=== PATIENT | female | born 1950 | race Caucasian/White ===

== ENCOUNTER 2018-05-17 09:53 | Inpatient (IN) ==
--- NOTE | 2018-04-26 15:54 | PAT Medication Instructions ---
Medication Instructions Date of Service April 26, 2018 Home Medications levothyroxine 75 mcg oral daily in the morning montelukast 10 mg oral evening olanzapine 5 mg oral evening pantoprazole 40 mg oral daily in the morning sertraline 100 mg oral twice a day atorvastatin 20 mg oral evening diltiazem HCl [Cartia XT] 240 mg oral daily in the morning Antibiotic 1 dose oral use as directed as needed Take as Needed for: INVASIVE PROCEDURES Continue as directed Antibiotic 1 dose oral use as directed as needed Take as Needed for: INVASIVE PROCEDURES Take morning of surgery With a small sip of water, OTHERWISE NOTHING TO EAT OR DRINK AFTER MIDNIGHT: levothyroxine 75 mcg oral daily in the morning pantoprazole 40 mg oral daily in the morning sertraline 100 mg oral twice a day diltiazem HCl [Cartia XT] 240 mg oral daily in the morning Take evening before surgery montelukast 10 mg oral evening olanzapine 5 mg oral evening sertraline 100 mg oral twice a day atorvastatin 20 mg oral evening Other Notes If you have any questions please call us at [phone] or [phone] or [phone] or [phone]
--- NOTE | 2018-04-27 13:03 | Anesthesiology Consultation ---
Date of Service April 27, 2018 Assessment & Plan (1) Encounter for pre-operative examination: Chart Review Chart Review: Acceptable Risk for Surgery and Patient seen in Pre Admission Testing Teaching & Discussion Pre-Anesthesia Teaching/Discussion Notes: Instructed NPO after midnight before surgery,except medications with 15 cc of water. Medication instructions provided according to the PAT guidelines. History Surgery Operation Date: 05/17/18 10:05 Proposed Procedures p L3-L5 Decompression and Fusion - Kendell Kumar DO Height/Weight Height: 5 ft 5 in Weight: 107.3 kg Allergies Allergy/AdvReac Type Severity Reaction Status Date / Time codeine Allergy Unknown CHEST Verified 04/27/18 13:21 PAIN/VOMITING morphine Allergy Unknown CHEST Verified 04/27/18 13:21 PAIN/VOMITING Medications Home Medications Medication Instructions Recorded Confirmed Last Taken Antibiotic 1 dose PO UD PRN 04/20/18 04/20/18 Unknown atorvastatin 20 mg PO PM 04/20/18 04/20/18 04/19/18 diltiazem HCl [Cartia XT] 240 mg PO QAM 04/20/18 04/20/18 04/20/18 levothyroxine 75 mcg PO QAM 04/20/18 04/20/18 04/20/18 montelukast 10 mg PO PM 04/20/18 04/20/18 04/19/18 olanzapine 5 mg PO PM 04/20/18 04/20/18 04/19/18 pantoprazole 40 mg PO QAM 04/20/18 04/20/18 04/20/18 sertraline 100 mg PO BID 04/20/18 04/20/18 04/20/18 albuterol sulfate 1 puff INHALATION PRN 04/27/18 Unknown Past Medical History Medical History Acid reflux CONTROLLED Asthma STABLE Depression Hyperlipidemia Hypertension Migraine Obesity Osteoarthritis PVCs (premature ventricular contractions) NO RECENT PALPITATIONS Spinal stenosis Past Family History Family History Other Family history of brain cancer Family history of breast cancer Past Surgical History Surgical History History of ankle surgery LEFT History of cardiac cath 2011= NO STENTS History of colonoscopy History of foot surgery RIGHT History of hemorrhoidectomy History of laparoscopic cholecystectomy History of shoulder surgery LEFT RCR X 2 History of total right knee replacement History of urologic surgery BLADDER TACK Past Anesthesia History No Hx of Anesthesia Complications (EXCEPT PONV) and No Family Hx of Anesthesia Complications History of PONV Yes Motion Sickness Screening History of Motion Sickness: No Social History Smoking Status: Never smoker Do You Dip or Chew Tobacco: No Hx Alcohol Use: No Hx Substance Use: No substance use type: does not use Exercise / Class Metabolic Activity III < 4 Walking/Shop/Light housework Review of Systems Patient reports LBP with LLE radiculopathy/neuropathy. Patient denies chest pain, shortness of breath, cough, wheezing, palpitations. Physical Exam Vital Signs VITALS BP 129/79 P 67 TEMP 98.6 SP02 95%RA RESP 20 PHYSICAL Full neck and c-spine range of motion. Full TMJ range of motion. TMD 2.5 finger breaths Mallampati Score 3 Dentition: full upper dentures Lungs: clear throughout to auscultation Cardiac: regular rate and rhythm, no murmurs noted Spine: normal Carotid arteries: negative bruit Extremities: no edema Testing Electrocardiogram Date: 04/27/18 Findings: + NSR @ (63) Chest X-Ray Date: 04/27/18 Findings: + NAD There is minor retroxiphoid atelectasis/scarring is visualized in the lateral projection Laboratory Results 04/27/18 13:31 04/27/18 13:31 Blood Type O Positive 04/27/18 13:31 Antibody Screen NEGATIVE 04/27/18 13:31 PT 10.1 Seconds (9.0-12.0) 04/27/18 13:31 INR 1.0 (0.9-1.1) 04/27/18 13:31 APTT 23.9 Seconds (21.0-31.0) 04/27/18 13:31 Urine Color Dark Yellow 04/27/18 13:31 Urine Appearance Cloudy (Clear) H 04/27/18 13:31 Urine pH 6.5 (4.5-7.5) 04/27/18 13:31 Ur Specific [place] 1.031 (1.000-1.030) H 04/27/18 13:31 Urine Protein Negative (Negative) 04/27/18 13:31 Urine Glucose (UA) Negative (Negative) 04/27/18 13:31 Urine Ketones Trace (Negative) H 04/27/18 13:31 Urine Nitrite Negative (Negative) 04/27/18 13:31 Ur Leukocyte Esterase Negative (Negative) 04/27/18 13:31 Urine WBC (Auto) 1-5 /hpf (0-5) 04/27/18 13:31 Urine RBC (Auto) 5-10 /hpf (0-4) H 04/27/18 13:31 U Hyaline Cast (Auto) 1-5 /lpf (0-5) 04/27/18 13:31 U Epithel Cells (Auto) >30 /lpf (0-5) H 04/27/18 13:31 Urine Bacteria (Auto) 1+ (Negative) H 04/27/18 13:31 04/27/18 13:31 Urine Culture - Preliminary Urine,Clean Catch Pin-point growth present, reincubating. Surgeon made aware of abnormal UA*
--- NOTE | 2018-04-27 13:47 | XRay Report ---
XR chest Pre-admission PA/Lat CLINICAL HISTORY: Preoperative chest COMPARISON STUDY: No previous studies for comparison. FINDINGS: The cardiac and mediastinal contours are normal. There is no evidence of focal pulmonary co nsolidation. There is no evidence of failure. No pleural effusions are visualized.[ There is minor re troxiphoid atelectasis/scarring is visualized in the lateral projection IMPRESSION: No active disease in the chest. Electronically signed by: Nicolas Guerrero M.D. 04/27/2018 1:45 PM
[2018-04-27 14:17] LABS: Appearance Urine Cloudy (Clear); Bacteria Urine Automated 1+ (Negative); Bilirubin Urine Negative (Negative); Blood Urine Negative (Negative); Color Urine Dark Yellow; Epithelial Cell Urine Auto >30 /lpf (0-5); Glucose Urine UA Negative (Negative); Ketones Urine Trace (Negative); Leukocyte Esterase Urine Negative (Negative); Nitrite Urine Negative (Negative); Protein Urine Negative (Negative); Specific Gravity Urine 1.031 (1.000-1.030); Urobilinogen Urine Negative (Negative); pH Urine 6.5 (4.5-7.5)
[2018-04-27 14:18] LABS: Basophils # (auto) 0.02 K/uL (0-0.2); Basophils % (auto) 0.3 %; Eosinophils # (auto) 0.07 K/uL (0-0.5); Eosinophils % (auto) 1.1 %; Hematocrit (blood only) 41.7 % (37-47); Hemoglobin 13.7 g/dL (12.0-16.0); Immature Granulocytes # (auto) 0.11 K/uL (0.00-0.02); Immature Granulocytes % (auto) 1.7 %; Lymphocytes # (auto) 1.83 K/uL (1.2-3.4); Lymphocytes % (auto) 28.2 %; Mean Corpuscular Hgb Conc 32.9 g/dL (32-36); Mean Corpuscular Volume 87.8 fL (80-100); Mean Platelet Volume 11.6 fL (7.4-10.4); Monocytes # (auto) 0.49 K/uL (0.11-0.59); Monocytes % (auto) 7.5 %; Neutrophils # (auto) 3.98 K/uL (1.4-6.5); Neutrophils % (auto) 61.2 %; Platelet Count 158 K/uL (130-400); RDW Coefficient of Variation 14.1 % (11.5-14.5); RDW Standard Deviation 45.8 fL (36.4-46.3); Red Blood Count 4.75 M/uL (4.2-5.4)
[2018-04-27 14:26] LABS: Partial Thromboplastin Ratio 0.9; Partial Thromboplastin Time 23.9 Seconds (21.0-31.0); Prothrombin Time 10.1 Seconds (9.0-12.0)
[2018-04-27 14:27] LABS: Calcium 8.6 mg/dl (8.5-10.1); Creatinine Clr Calc Pharmacy 76.6 ml/min; Est GFR (African American) 79.4; Est GFR (Non-African American) 68.5; Potassium 3.9 mmol/L (3.5-5.1)
[~2018-05-17 09:53] MED LIST: ACETAMINOPHEN 500 MG TAB PO SCH; CEFAZOLIN 2000MG 2,000 MG/15 ML SYR IV SCH; CeleBREX 200 MG CAP PO SCH; GABAPENTIN 300 MG PO SCH; LR 15ML/HR IV SCH
[2018-05-17] MEDS ORDERED: HYDROmorphone INJ 2 MG/ML SYR/VIAL ONE ×2 (10:42→13:59)
[2018-05-17] MEDS ORDERED: fentaNYL citrate 100 MCG/2 ML VIAL ONE ×4 (10:46→13:59)
[2018-05-17] MEDS ORDERED: MIDAZOLAM HCL 1 MG/ML 2ML VIAL ONE (10:46)
[2018-05-17] MEDS ORDERED: LIDOCAINE HCL 2% 2 ML VIAL/AMP(20MG/ML) INFIL ONE (10:47)
[2018-05-17] MEDS ORDERED: NEOSTIGMINE METHYLSULFATE 1 MG/ML 10ML VIAL ONE (10:47)
[2018-05-17] MEDS ORDERED: DEXAMETHASONE SOD INJ 4 MG/ML VIAL ONE (10:47)
[2018-05-17] MEDS ORDERED: ROCURONIUM BROMIDE 10 MG/ML 5 ML VIAL ONE (10:47)
[2018-05-17] MEDS ORDERED: PROPOFOL IV EMULSION 10 MG/ML 20 ML VIAL IV ONE (10:47)
[2018-05-17] MEDS ORDERED: ONDANSETRON INJ 2 MG/ML 2 ML VIAL ONE ×2 (10:47→12:27)
[2018-05-17] MEDS ORDERED: GLYCOPYRROLATE 0.2 MG/ML VIAL ONE (10:47)
--- NOTE | 2018-05-17 11:12 | History & Physical Bridge Note ---
Date of Service May 17, 2018 History & Physical Bridge Note I have examined the patient, reviewed the History & Physical and in the interval since the performance of the History & Physical I have noted the following changes of clinical significance: no changes noted
--- NOTE | 2018-05-17 11:15 | History & Physical Report ---
Date of Service May 17, 2018 Assessment & Plan (1) Neurogenic claudication due to lumbar spinal stenosis: L3-L5 decompression and fusion Present on Admission?: Yes History of Present Illness Chief Complaint: Back and leg pain Primary Care Provider: Laura Castillo This is a 67-year-old female that presents with chronic persistent back pain. She after failing extensive course of nonoperative care she is here for surgical intervention. Allergies Allergy/AdvReac Type Severity Reaction Status Date / Time codeine Allergy Unknown CHEST Verified 05/17/18 10:13 PAIN/VOMITING morphine Allergy Unknown CHEST Verified 05/17/18 10:13 PAIN/VOMITING Home Medications Home Medications Medication Instructions Recorded Confirmed Type Antibiotic 1 dose PO UD PRN 04/20/18 04/20/18 History atorvastatin 20 mg PO PM 04/20/18 04/20/18 History diltiazem HCl [Cartia XT] 240 mg PO QAM 04/20/18 04/20/18 History levothyroxine 75 mcg PO QAM 04/20/18 04/20/18 History montelukast 10 mg PO PM 04/20/18 04/20/18 History olanzapine 5 mg PO PM 04/20/18 04/20/18 History pantoprazole 40 mg PO QAM 04/20/18 04/20/18 History sertraline 100 mg PO BID 04/20/18 04/20/18 History albuterol sulfate 1 puff INHALATION PRN 04/27/18 History Past Med/Surg History Family History Other Family history of brain cancer Family history of breast cancer Social History Preferred Language: Uzbek Communication Ability: Effective Boiler Riveter Required: No Beliefs That Will Affect Care: None Current Living Situation: Spouse Other Information That Helps Us Care for You: No Feels Safe at Home: Yes Smoking Status: Never smoker Hx Alcohol Use: No Hx Substance Use: No Physical Exam Vital Signs (Past 24 Hours): Last Vital Signs Temp 36.9 C 05/17/18 10:36 Pulse 66 05/17/18 10:36 Resp 20 05/17/18 10:36 BP 158/89 H 05/17/18 10:36 Pulse Ox 95 05/17/18 10:36 Results & Data Medications Administered Acetaminophen (Tylenol) 1,000 mg PO PREOP PEDRO Stop: 05/17/18 18:00 Last Admin: 05/17/18 10:38 Dose: 1,000 mg Documented by: [id number] Celecoxib (Celebrex) 200 mg PO PREOP PEDRO Stop: 05/17/18 18:00 Last Admin: 05/17/18 10:38 Dose: 200 mg Documented by: [id number] Gabapentin (Neurontin) 300 mg PO PREOP PEDRO Stop: 05/17/18 18:00 Last Admin: 05/17/18 10:39 Dose: 300 mg Documented by: [id number] Lactated Ringer's (Lr) 1,000 mls @ 15 mls/hr IV .Q24H PEDRO Stop: 05/18/18 05:59 Last Admin: 05/17/18 10:38 Dose: 15 mls/hr Documented by: [id number]
[2018-05-17] MEDS ORDERED: BUPIVACAINE/EPINEPHRINE 0.5% MPF 1:200,000 30 ML VIAL ONE (11:29)
[2018-05-17] MEDS ORDERED: BACITRACIN INJ 50,000 UNIT VIAL ONE (11:30)
[2018-05-17] MEDS ORDERED: ePHEDrine sulfate 50 MG/ML AMP IV PRN (11:50)
[2018-05-17] MEDS ORDERED: HYDROmorphone INJ 2 MG/ML SYR/VIAL IV PRN (11:50)
[2018-05-17] MEDS ORDERED: ONDANSETRON INJ 2 MG/ML 2 ML VIAL IV PRN ×2 (11:50→15:40)
[2018-05-17] MEDS ORDERED: DEXAMETHASONE SOD INJ 4 MG/ML VIAL IV PRN (11:50)
[2018-05-17] MEDS ORDERED: ATROPINE SULFATE 0.1 MG/ML 10ML SYR IV PRN (11:50)
[2018-05-17] MEDS ORDERED: PHENYLEPHRINE 100MCG/ML 5ML SYR ONE ×2 (12:27→14:03)
[2018-05-17] MEDS ORDERED: raNITIdine HCl 25 MG/ML VIAL ONE (12:27)
[2018-05-17] MEDS ORDERED: ePHEDrine sulfate 50 MG/ML SYR ONE ×2 (12:27→14:03)
[2018-05-17] MEDS ORDERED: METOCLOPRAMIDE HCL INJ 5 MG/ML 2 ML VIAL ONE (12:27)
[2018-05-17] MEDS ORDERED: FLOSEAL HEMOSTATIC MATRIX 10ML TOP ONE (13:52)
[2018-05-17] MEDS ORDERED: KETOROLAC 30 MG/ML VIAL ONE (13:59)
--- NOTE | 2018-05-17 14:02 | Operative Report ---
Post Operative Report Pre & Post Diagnosis Operation Date: 05/17/18 11:25 Pre-Op Diagnosis: Neurogenic claudication due to lumbar spinal stenosis Post-Op Diagnosis: Neurogenic claudication due to lumbar spinal stenosis Procedure Operation Date: 05/17/18 11:25 Actual Procedures #1 lumbar decompression medial facetectomies foraminotomies L2-3 L3-4 L4-5 per #2 posterior spinal fusion L3-4 L4-5 per #3 placement posterior segmental instrumentation L3-4 L4-5. #4 interbody fusion L3-4 L4-5. #5 placement of titanium 11 x 22 mm cage L3-4 and 13 x 2 at L4-5 per #6 placement of local autograft in the posterior lateral gutters. #7 placement Feese collagen sponge bone mass graft in the posterior lateral gutters and ostial amp and interbody space. Surgeon Kendell Kumar, Course Instructor Teri Alas Estimated Blood Loss 475 Findings Consistent with Post-Op Diagnosis Specimens None Description of Procedure Patient was met with preoperatively case discussed all questions addressed. After informed consent obtained patient was taken to the operative suite underwent intubation and placed in the prone position on the Brandon table on top of the Gene frame. All bony prominences well-padded eyes inspected to ensure no external pressure placed upon the. This point the lumbar spine was prepped and draped in a normal sterile fashion. Sharp dissection with the assistance of Bovie cautery was performed down to and exposing the lamina and transverse processes of L3 L4-5 bilaterally. From a caudal to cephalad fashion complete laminectomy of L4 3 and partial laminectomy of L2 was performed including bilateral medial facetectomies and foraminotomies addressing severe stenosis. Also identified and removed a massive facet cyst at L3-4 on the left. Pedicle screws and placed in L3-L4-L5 bilaterally with assistance of fluoroscopy and the purposes justen placed by way of a transforaminal approach and left complete discectomy of L4-5 was performed in plate coated to subcortical mean bone and a 13 x 22 mm titanium cage filled with ostium bone graft tapped in position. Then proceeded L3-4 and again through a transforaminal approach and left complete discectomy performed in place coated to subcortical mean bone and an 11 x 22 mm titanium cage filled with ostium bone graft tapped in position. Rods were then locked in final position bilaterally. The transverse processes of L3-L4-L5 bur to subcortical bleeding bone. Infuse collagen sponge mass graft local autograft placed in the posterior gutters. 15 round MADELYN drain inserted. Incision was then closed with 1 Vicryl in the fascia 2-0 Vicryl substantially and 4-0 Monocryl for final skin closure. Steri-Strip sterile dressings placed. Patient will continue PACU stable history please note Teri Alas present throughout the entire procedure involved in patient positioning complex portions of the surgery and final skin closure. I attest to the content of the Intraoperative Record and any orders documented therein. Any exceptions are noted below.
[2018-05-17] MEDS ORDERED: LARYING-O-JET KIT (LTA) ONE (14:06)
--- NOTE | 2018-05-17 14:23 | Fluoroscopy Report ---
FL lumbar spine 2-3V CLINICAL HISTORY: 67 years-old Female presenting with L3-L5 DECOMPRESSION AND FUSION. TECHNIQUE: 2 fluoroscopic image(s) recorded as part of an intraoperative procedure. COMPARISON: None. FINDINGS/IMPRESSION: Posterior bilateral transpedicular screw not fixation of L3-L5 with interbody spacers and laminectomy defects. Please see surgical report for further details. Fluoroscopy dosage (mGy): 14.83. Fluoroscopy time: 14.7 seconds. Number or time of high level fluoroscopy (HLF), digital spot, or digital subtraction images: 0. Electronically signed by: Ze Mariee M.D. 05/17/2018 2:22 PM
[2018-05-17] MEDS: fentaNYL citrate 100 MCG/2 ML VIAL IV PRN ×2 (14:50→14:56)
[2018-05-17] MEDS ORDERED: PROMETHAZINE HCL 12.5 MG in SODIUM CHLORIDE 0.9% 50 ML IV STA (15:01)
--- NOTE | 2018-05-17 15:11 | Anesthesiology Progress Note ---
Date of Service May 17, 2018 Anesthesia Post Procedure Vital Signs Vital Signs: Temp Pulse Pulse Resp BP Pulse Ox 05/17/18 15:00 69 17 134/57 L 97 05/17/18 14:50 74 13 140/70 98 05/17/18 14:40 83 16 143/73 H 99 05/17/18 14:30 91 H 18 144/67 H 98 05/17/18 14:22 36.7 C 83 18 135/69 94 05/17/18 10:36 36.9 C 66 20 158/89 H 95 Pain Intensity Lower Back: Pain Intensity: 6 Back: Pain Intensity: 4 Notes Mental Status: alert / awake / arousable and participated in evaluation Patient Amnestic to Procedure: Yes Nausea / Vomiting: adequately controlled Pain: adequately controlled Airway Patency, RR, SpO2: stable & adequate BP & HR: stable & adequate Hydration State: stable & adequate Anesthetic Complications: no major complications apparent
[2018-05-17] MEDS ORDERED: PROMETHAZINE HCL 12.5 MG in SODIUM CHLORIDE 0.9% 50 ML IV SCH (15:15)
[2018-05-17] MEDS ORDERED: SOD PHOSPHATE/SOD BIPHOSPHATE ENEMA 132 ML BTL PR PRN (15:40)
[2018-05-17] MEDS ORDERED: LORazepam 0.5 MG/1 ML VIAL IV PRN (15:40)
[2018-05-17] MEDS ORDERED: BISACODYL 10 MG SUPP PR PRN (15:40)
[2018-05-17] MEDS ORDERED: ONDANSETRON 4 MG TAB PO PRN (15:40)
[2018-05-17] MEDS ORDERED: MAGNESIUM HYDROXIDE SUSP 30 ML UDC PO PRN (15:40)
[2018-05-17] MEDS ORDERED: DO NOT ADMINISTER FLU VACCINE PRN (15:40)
[2018-05-17] MEDS ORDERED: ACETAMINOPHEN 1,000 MG/100 ML VIAL IV PRN (15:40)
[2018-05-17] MEDS ORDERED: LORazepam 0.5 MG TAB PO PRN (15:40)
[2018-05-17] MEDS ORDERED: FAMOTIDINE 20 MG TAB PO PRN (15:40)
[2018-05-17] MEDS ORDERED: HYDROmorphone INJ 0.5 MG/0.5 ML SYR IV PRN (15:40)
[2018-05-17] MEDS ORDERED: PROMETHAZINE HCL 12.5 MG in SODIUM CHLORIDE 0.9% 50 ML IV PRN (15:40)
[2018-05-17] MEDS ORDERED: METOCLOPRAMIDE HCL INJ 5 MG/ML 2 ML VIAL IV PRN (15:40)
[2018-05-17] MEDS ORDERED: ACETAMINOPHEN 500 MG TAB PO PRN (15:40)
[2018-05-17] MEDS ORDERED: ALUMINUM/MAGNESIUM SUSP 30 ML UDC PO PRN (15:40)
[2018-05-17] MEDS ORDERED: DO NOT ADMINISTER PNEUMOCOCCAL VACCINE PRN (15:40)
[2018-05-17] MEDS: KETOROLAC TROMETHAMINE 15 MG/ML VIAL IV SCH ×2 (16:14→21:53)
[2018-05-17] MEDS: LACTATED RINGER'S 1,000 ML IV SCH ×2 (16:14→21:56)
--- NOTE | 2018-05-17 16:33 | Consultation ---
Date of Consultation May 17, 2018 Assessment & Plan (1) Neurogenic claudication due to lumbar spinal stenosis: POD #0 S/P Lumbar Decompression/Fusion L3-L5 by Dr. Kumar EBL 475ml tolerated procedure well -pain/wound management per primary -activity as directed by primary -follow cbc to monitor for abl anemia -SCDs for dvt ppx (2) Hypertension: -blood pressure stable, continue diltiazem (3) Hyperlipidemia: -continue atorvastatin (4) Asthma: -no acute exacerbation -prn ventolin (5) Depression: -mood stable, zyprexa at HS (6) Obesity: -encourage lifestyle modifications -BMI 39 (7) Acid reflux: -continue PPI (8) DVT prophylaxis: -SCDS, per primary Disposition: per primary Follow up: PCP Laura Castillo upon discharge Patient was seen and examined in collaboration with Dr. Agosto, please see addendum Starting 05/18/18 patient will be under the care of Dr. Agosto Supervising Physician Co-Signing Physician Notes Attending addendum The patient was seen and examined the medical floor Status post lumbar decompression fusion Denies any symptoms of chest pain, shortness of breath, palpitation, no abdominal pain, nausea no vomiting, denies any numbness or tingling in the extremities Complains to have minimal pain involving the back On examination No apparent distress at rest Hemodynamically stable Chest-clear to auscultate bilaterally Heart-S1-S2, regular Abdomen-benign, nontender, bowel sounds present Extremities-no edema ANGLE FURNACEMAN-alert, awake and oriented x3 Admission labs, EKG and imaging studies reviewed Medically stable Agree with assessment and plan as outlined above by Wendi Agosto History of Present Illness Reason for Consultation: Postop medical management Requesting Physician: Dr. Kumar Attending Physician: Kendell Kumar, DO History of Present Illness PCP: Laura Castillo This is a 67-year-old white female who has a significant past medical history of HTN, HLD, hypothyroidism, history of PVC, allergic asthma, GERD, hiatal hernia, MDD who presents to [facility] for elective lumbar surgery by Dr. Kumar. is at bedside. Patient states prior to procedure she experienced low back pain with left lower extremity numbness. Patient underwent elective lumbar decompression fusion L3-L5 by Dr. Kumar. She tolerated the procedure well but did have significant postop nausea; however, no vomiting. Currently she complains of incisional discomfort but otherwise feels, "okay." Denies any fever, chills, sweats, lightheadedness, dizziness, chest pain, shortness of breath, palpitations, hemoptysis, nausea, vomiting, diarrhea, abdominal pain. She does have a Sanchez catheter and MADELYN drain in place. She o ffers no acute complaints or concerns. Allergies Allergy/AdvReac Type Severity Reaction Status Date / Time codeine Allergy Unknown CHEST Verified 05/17/18 10:13 PAIN/VOMITING morphine Allergy Unknown CHEST Verified 05/17/18 10:13 PAIN/VOMITING Home Medications Home Medications Medication Instructions Recorded Confirmed Type atorvastatin 20 mg PO PM 04/20/18 04/20/18 History diltiazem HCl [Cartia XT] 240 mg PO QAM 04/20/18 04/20/18 History levothyroxine 75 mcg PO QAM 04/20/18 04/20/18 History montelukast 10 mg PO PM 04/20/18 04/20/18 History olanzapine 5 mg PO PM 04/20/18 04/20/18 History pantoprazole 40 mg PO QAM 04/20/18 04/20/18 History sertraline 100 mg PO BID 04/20/18 04/20/18 History albuterol sulfate [Ventolin HFA] 2 puff INHALATION Q4H PRN 05/17/18 05/17/18 History amoxicillin 2 g PO UD 05/17/18 05/17/18 History Patient History Social History Preferred Language: Slovak Communication Ability: Effective Parking Station Attendant Required: No Beliefs That Will Affect Care: None Current Living Situation: Spouse Other Information That Helps Us Care for You: No Feels Safe at Home: Yes Smoking Status: Never smoker Hx Alcohol Use: No Hx Substance Use: No Review of Systems As noted per HPI, 10 systems reviewed and negative unless noted above. Physical Exam Vital Signs (Past 24 Hours): Last Vital Signs Temp 36.7 C 05/17/18 16:05 Pulse 72 05/17/18 16:05 Resp 20 05/17/18 16:05 BP 125/71 05/17/18 16:05 Pulse Ox 97 05/17/18 16:05 Physical Exam: Gen: WD/WN, F, NAD, sitting up in bed, pleasant, conversing easily Head: Normocephalic, Atraumatic Eyes: Sclera normal, no conjunctival injection, PERRLA, EOMI ENT: Gross hearing intact, normal pharynx, mucous membranes dry Neck: supple, no adenopathy, No JVD, no bruit, Resp: Clear to auscultation b/l, no wheeze, rales, rhonchi. Normal insp/exp effort, no accessory muscle use CV: Regular rate, regular rhythm, soft 1/6 AYESHA noted RUSB, no rub, gallop, or ectopy Abd: +obese abdomen, +BS x 4, soft, nontender, nondistended Musculoskeletal: moves extremities active rom x 4, strength intact, good manager general strength Extremities: No edema bilaterally, SCDS in place Skin: warm, moist, no rash, negative turgor, cap refill < 2sec, lumbar dressing CDI, MADELYN drain in place draining serosanginous drainage Neuro: Alert and oriented x 3, speech normal, good mood/affect, cran nerve 2-12 intact grossly : +sanchez with clear yellow urine Results & Data Laboratory Results Preoperative H&H 13.1 and 41.7 Urinalysis positive leukoesterase and bacteria, many epithelial cells grew multi-organism likely skin rosa no acute infection Diagnostic Findings Preoperative chest x-ray no acute cardia pulmonary disease Medications Administered Hydromorphone HCl (Dilaudid) 0.5 - 1 mg IV Q3H PRN PRN Reason: Pain Stop: 05/31/18 15:39 Last Admin: 05/17/18 16:15 Dose: 0.5 mg Documented by: [id number] Lactated Ringer's (Lr) 1,000 mls @ 150 mls/hr IV .Q6H40M PEDRO Stop: 06/16/18 15:39 Last Admin: 05/17/18 16:14 Dose: 150 mls/hr Documented by: [id number] Ketorolac Tromethamine (Toradol) 15 mg IV Q6H PEDRO Stop: 05/18/18 10:01 Last Admin: 05/17/18 16:14 Dose: 15 mg Documented by: [id number] Discontinued Medications Acetaminophen (Tylenol) 1,000 mg PO PREOP PEDRO Stop: 05/17/18 18:00 Last Admin: 05/17/18 10:38 Dose: 1,000 mg Documented by: [id number] Bacitracin (Bacitracin) Confirm Administered Dose 50,000 units .ROUTE .STK-MED ONE Stop: 05/17/18 11:31 Last Admin: 05/17/18 13:36 Dose: 50,000 units Documented by: [id number] Bupivacaine HCl/Epinephrine Bitart (Sensorcaine/Epinephrine 0.5% Mpf 1:200,000) Confirm Administered Dose 30 ml .ROUTE .STK-MED ONE Stop: 05/17/18 11:30 Last Admin: 05/17/18 13:36 Dose: 25 ml Documented by: [id number] Celecoxib (Celebrex) 200 mg PO PREOP PEDRO Stop: 05/17/18 18:00 Last Admin: 05/17/18 10:38 Dose: 200 mg Documented by: [id number] Fentanyl Citrate (Fentanyl Citrate) 50 mcg IV Q5M PRN PRN Reason: PACU Use Only-Pain Stop: 05/17/18 16:50 Last Admin: 05/17/18 14:56 Dose: 50 mcg Documented by: [id number] Admin: 05/17/18 14:50 Dose: 50 mcg Documented by: [id number] Gabapentin (Neurontin) 300 mg PO PREOP PEDRO Stop: 05/17/18 18:00 Last Admin: 05/17/18 10:39 Dose: 300 mg Documented by: [id number] Lactated Ringer's (Lr) 1,000 mls @ 15 mls/hr IV .Q24H PEDRO Stop: 05/18/18 05:59 Last Infusion: 05/17/18 11:47 Dose: 0 mls/hr Documented by: [id number] Admin: 05/17/18 10:38 Dose: 15 mls/hr Documented by: [id number] Cefazolin Sodium (Ancef 2000mg) 2,000 mg in 15 mls @ 3.75 mls/min IV PREOP PEDRO; Protocol Stop: 05/17/18 18:00 Last Admin: 05/17/18 11:47 Dose: 3.75 mls/min Documented by: [id number] Promethazine HCl 12.5 mg/ (Sodium Chloride) 50.5 mls @ 202 mls/hr IV TODAY@1515 PEDRO Stop: 05/17/18 15:29 Last Admin: 05/17/18 15:14 Dose: 202 mls/hr Documented by: [id number] Miscellaneous (Floseal Hemostatic Matrix 10ml) 25 ml TOP ONCE ONE Stop: 05/17/18 13:53 Last Admin: 05/17/18 13:53 Dose: 25 ml Documented by: [id number] Ondansetron HCl (Zofran) 4 mg IV ONCE PRN PRN Reason: PACU Use Only-Nausea/Vomiting Stop: 05/17/18 16:50 Last Admin: 05/17/18 14:45 Dose: 4 mg Documented by: [id number] ECG Rate (beats per minute): 63 Rhythm: normal sinus (1) Depression Active/Remission status: remission status unspecified Depression Type: major depressive disorder Major depression recurrence: unspecified whether recurrent Qualified Code(s): F32.9 - Major depressive disorder, single episode, unspecified (2) Hyperlipidemia Hyperlipidemia type: unspecified Qualified Code(s): E78.5 - Hyperlipidemia, unspecified (3) Acid reflux Esophagitis presence: esophagitis presence not specified Qualified Code(s): K21.9 - Gastro-esophageal reflux disease without esophagitis (4) Hypertension Hypertension type: essential hypertension Qualified Code(s): I10 - Essential (primary) hypertension (5) Obesity Body mass index: BMI 39.0-39.9 Obesity classification: adult class 2 (BMI 35 - 39.9) Obesity type: due to excess calories Serious obesity comorbidity presence: without serious comorbidity Qualified Code(s): E66.09 - Other obesity due to excess calories; Z68.39 - Body mass index (BMI) 39.0-39.9, adult (6) Asthma Asthma complication type: uncomplicated Asthma persistence: intermittent Asthma severity: mild Qualified Code(s): J45.20 - Mild intermittent asthma, uncomplicated
[2018-05-17] MEDS: CEFAZOLIN 2000MG 2,000 MG/15 ML SYR IV SCH (20:44)
[2018-05-17] MEDS: MONTELUKAST SODIUM 10 MG TABLET PO SCH (20:49)
[2018-05-17] MEDS: ATORVASTATIN 20 MG TAB PO SCH (20:49)
[2018-05-17] MEDS: DOCUSATE SODIUM/SENNA 50/8.6MG TAB PO SCH (20:49)
[2018-05-17] MEDS: OLANZapine 5 MG TABLET PO SCH (20:50)
[2018-05-17] MEDS: SERTRALINE HCL 100 MG TABLET PO SCH (20:50)
[2018-05-17] MEDS: OXYCODONE HCL IR 5 MG TAB (IMMEDIATE RELEASE) PO PRN (23:14)
[2018-05-18] MEDS: KETOROLAC TROMETHAMINE 15 MG/ML VIAL IV SCH ×2 (03:55→09:18)
[2018-05-18] MEDS: CEFAZOLIN 2000MG 2,000 MG/15 ML SYR IV SCH (03:55)
[2018-05-18] MEDS: LACTATED RINGER'S 1,000 ML IV SCH (04:05)
[2018-05-18] MEDS: POLYETHYLENE (MIRALAX) 17 GM PACK PO SCH ×4 (05:49→23:47)
[2018-05-18] MEDS: LEVOTHYROXINE SODIUM 75 MCG TABLET PO SCH (05:49)
[2018-05-18 06:09] LABS: Basophils # (auto) 0.01 K/uL (0-0.2); Basophils % (auto) 0.1 %; Hematocrit (blood only) 34.2 % (37-47); Hemoglobin 10.9 g/dL (12.0-16.0); Immature Granulocytes # (auto) 0.07 K/uL (0.00-0.02); Immature Granulocytes % (auto) 0.6 %; Lymphocytes # (auto) 0.71 K/uL (1.2-3.4); Lymphocytes % (auto) 6.3 %; Mean Corpuscular Hgb Conc 31.9 g/dL (32-36); Mean Platelet Volume 11.9 fL (7.4-10.4); Monocytes # (auto) 0.56 K/uL (0.11-0.59); Neutrophils # (auto) 9.86 K/uL (1.4-6.5); Platelet Count 146 K/uL (130-400); Red Blood Count 3.93 M/uL (4.2-5.4); White Blood Count 11.21 K/uL (4.8-10.8)
[2018-05-18 06:34] LABS: BUN Creatinine Ratio 14.2 (10-20); Calcium 8.3 mg/dl (8.5-10.1); Creatinine Clr Calc Pharmacy 70.5 ml/min; Est GFR (African American) 72.3; Est GFR (Non-African American) 62.4; Potassium 4.5 mmol/L (3.5-5.1)
[2018-05-18] MEDS: PANTOprazole 40 MG TAB PO SCH (07:24)
[2018-05-18] MEDS: dilTIAZem HCL 240 MG CAPCR PO SCH (07:25)
[2018-05-18] MEDS: SERTRALINE HCL 100 MG TABLET PO SCH ×2 (07:25→20:38)
--- NOTE | 2018-05-18 08:04 | Anesthesiology Progress Note ---
Date of Service May 18, 2018 Anesthesia Post Procedure Vital Signs Vital Signs: Temp Pulse Pulse Pulse Resp BP Pulse Ox 05/18/18 07:23 36.8 C 78 15 119/71 97 05/18/18 03:44 36.8 C 54 L 15 116/61 94 05/17/18 23:01 36.9 C 64 15 105/62 95 05/17/18 18:56 36.7 C 67 18 108/65 95 05/17/18 17:35 61 17 121/72 97 05/17/18 16:44 36.6 C 71 18 121/74 96 05/17/18 16:05 36.7 C 72 20 125/71 97 05/17/18 15:35 36.7 C 70 18 127/75 97 05/17/18 15:34 36.6 C 65 16 130/63 100 05/17/18 15:20 36.6 C 72 19 124/73 94 05/17/18 15:10 66 12 118/67 98 05/17/18 15:00 69 17 134/57 L 97 05/17/18 14:50 74 13 140/70 98 05/17/18 14:40 83 16 143/73 H 99 05/17/18 14:30 91 H 18 144/67 H 98 05/17/18 14:22 36.7 C 83 18 135/69 94 05/17/18 10:36 36.9 C 66 20 158/89 H 95 Pain Intensity Lower Back: Pain Intensity: 0 Back: Pain Intensity: 0 Notes Mental Status: alert / awake / arousable and participated in evaluation Patient Amnestic to Procedure: Yes Nausea / Vomiting: adequately controlled Pain: adequately controlled Airway Patency, RR, SpO2: stable & adequate BP & HR: stable & adequate Hydration State: stable & adequate Anesthetic Complications: no major complications apparent
[2018-05-18] MEDS ORDERED: LEVOTHYROXINE SODIUM 75 MCG TABLET PO SCH (09:00)
--- NOTE | 2018-05-18 09:57 | Hospitalist Progress Note ---
Date of Service May 18, 2018 Assessment & Plan (1) Neurogenic claudication due to lumbar spinal stenosis: POD #1 S/P Lumbar Decompression/Fusion L3-L5 by Dr. Kumar -Tolerated procedure well -Per ortho for pain control, wound care, anticoagulation and activities -Monitor H&H (EBL 475ml), hgb stable to 10.9 today. Continue to monitor -Continue incentive spirometry, PT/OT when appropriate (2) Hypertension: Normotensive (3) Hyperlipidemia: Continue atorvastatin (4) Asthma: No acute exacerbation -PRN Ventolin (5) Depression: Mood stable, Zyprexa HS (6) Obesity: Encourage lifestyle modifications -BMI 39 (7) Acid reflux: Continue PPI (8) DVT prophylaxis: SCDS, per primary Disposition: per primary Follow up: PCP Laura Castillo upon discharge Patient was seen and examined in collaboration with Dr. Agosto, please see addendum Subjective Patient seen and examined. Feeling well this morning. Denies back or leg pain. No chest pain, SOB, nausea, vomiting or abdominal pain. Still has sanchez catheter in but it will be removed after PT. + flatus but no BM. Physical Exam Vital Signs (Past 24 Hours): Last Vital Signs Temp 36.8 C 05/18/18 07:23 Pulse 78 05/18/18 07:23 Resp 15 05/18/18 07:23 BP 119/71 05/18/18 07:23 Pulse Ox 97 05/18/18 07:23 Physical Exam: General Appearance: WD/WN, no apparent distress, resting comfortably in bedside chair Head: normocephalic, atraumatic Eyes: normal inspection, PERRL, EOMI ENT: hearing grossly normal, pharynx normal (moist mucous membranes) Neck: supple, no JVD, no adenopathy Respiratory/Chest: lungs clear to auscultation. No wheezes, rales or rhonci. No respiratory distress or accessory muscle use Cardiovascular: regular rate, rhythm, no murmur, normal peripheral pulses Abdomen/GI: normal bowel sounds, soft, non-tender to palpation Extremities/Musculoskelatal: Lumbosacral dressing clean, dry, intact. MADELYN drain visualized. Normal capillary refill, no pedal edema Neurologic/Psych: alert, normal mood/affect, oriented x 3 Skin: normal color, warm/dry Results & Data Laboratory Results Short CBC 05/18/18 Range/Units 05:48 WBC 11.21 H (4.8-10.8) K/uL Hgb 10.9 L (12.0-16.0) g/dL Hct 34.2 L (37-47) % Plt Count 146 (130-400) K/uL BMP 05/18/18 05:48 Sodium 143 Potassium 4.5 Chloride 109 H Carbon Dioxide 28 BUN 14 Creatinine 0.95 Glucose 133 H Calcium 8.3 L (1) Hypertension Hypertension type: essential hypertension Qualified Code(s): I10 - Essential (primary) hypertension (2) Hyperlipidemia Hyperlipidemia type: unspecified Qualified Code(s): E78.5 - Hyperlipidemia, unspecified (3) Asthma Asthma severity: mild Asthma persistence: intermittent Asthma complication type: uncomplicated Qualified Code(s): J45.20 - Mild intermittent asthma, uncomplicated (4) Depression Depression Type: major depressive disorder Major depression recurrence: unspecified whether recurrent Active/Remission status: remission status unspecified Qualified Code(s): F32.9 - Major depressive disorder, single episo de, unspecified (5) Obesity Obesity type: due to excess calories Obesity classification: adult class 2 (BMI 35 - 39.9) Serious obesity comorbidity presence: without serious comorbidity Body mass index: BMI 39.0-39.9 Qualified Code(s): E66.09 - Other obesity due to excess calories; Z68.39 - Body mass index (BMI) 39.0-39.9, adult (6) Acid reflux Esophagitis presence: esophagitis presence not specified Qualified Code(s): K21.9 - Gastro-esophageal reflux disease without esophagitis
[2018-05-18] MEDS: OXYCODONE HCL IR 5 MG TAB (IMMEDIATE RELEASE) PO PRN ×2 (11:05→20:38)
--- NOTE | 2018-05-18 12:18 | Orthopedic Progress Note ---
Date of Service May 18, 2018 Assessment & Plan (1) Spinal stenosis: This time we will continue physical therapy monitor her MADELYN output anticipate discharge home in the next few days. Present on Admission?: Yes Subjective Back pain is controlled leg symptoms markedly improved Physical Exam Vital Signs (Past 24 Hours): Last Vital Signs Temp 36.8 C 05/18/18 11:24 Pulse 61 05/18/18 11:24 Resp 19 05/18/18 11:24 BP 123/72 05/18/18 11:24 Pulse Ox 96 05/18/18 11:24 Physical Exam: Patient is in the chair at the bedside. She is good strength testing. Appears comfortable.
[2018-05-18] MEDS: DOCUSATE SODIUM/SENNA 50/8.6MG TAB PO SCH (17:41)
[2018-05-18] MEDS: ATORVASTATIN 20 MG TAB PO SCH (20:38)
[2018-05-18] MEDS: MONTELUKAST SODIUM 10 MG TABLET PO SCH (20:38)
[2018-05-18] MEDS: OLANZapine 5 MG TABLET PO SCH (20:38)
[2018-05-18] MEDS: TRAMADOL HCL 50 MG TABLET PO PRN (22:07)
[2018-05-19 06:14] LABS: Hematocrit (blood only) 32.2 % (37-47); Hemoglobin 10.1 g/dL (12.0-16.0); Mean Corpuscular Hgb Conc 31.4 g/dL (32-36); Mean Corpuscular Volume 89.2 fL (80-100); Mean Platelet Volume 11.7 fL (7.4-10.4); Platelet Count 131 K/uL (130-400); RDW Coefficient of Variation 14.4 % (11.5-14.5); RDW Standard Deviation 46.9 fL (36.4-46.3); Red Blood Count 3.61 M/uL (4.2-5.4); White Blood Count 9.91 K/uL (4.8-10.8)
[2018-05-19] MEDS: POLYETHYLENE (MIRALAX) 17 GM PACK PO SCH ×3 (06:31→17:56)
[2018-05-19] MEDS: LEVOTHYROXINE SODIUM 75 MCG TABLET PO SCH (06:31)
[2018-05-19 06:43] LABS: Calcium 8.4 mg/dl (8.5-10.1); Creatinine Clr Calc Pharmacy 78.8 ml/min; Est GFR (African American) 82.8; Est GFR (Non-African American) 71.4; Potassium 4.7 mmol/L (3.5-5.1)
[2018-05-19] MEDS: OXYCODONE HCL IR 5 MG TAB (IMMEDIATE RELEASE) PO PRN ×3 (07:23→15:54)
[2018-05-19] MEDS: PANTOprazole 40 MG TAB PO SCH (07:24)
[2018-05-19] MEDS: dilTIAZem HCL 240 MG CAPCR PO SCH (07:24)
[2018-05-19] MEDS: SERTRALINE HCL 100 MG TABLET PO SCH ×2 (07:24→20:53)
--- NOTE | 2018-05-19 07:56 | Orthopedic Progress Note ---
Date of Service May 19, 2018 Assessment & Plan (1) Neurogenic claudication due to lumbar spinal stenosis: This time we will continue physical therapy monitor her MADELYN output anticipate discharge home tomorrow. Present on Admission?: Yes Subjective Patient states her back pain is somewhat more limiting today. Denies any leg pain. Is tolerating therapy well. Physical Exam Vital Signs (Past 24 Hours): Last Vital Signs Temp 36.6 C 05/19/18 06:27 Pulse 60 05/19/18 06:27 Resp 16 05/19/18 06:27 BP 125/78 05/19/18 06:27 Pulse Ox 99 05/19/18 06:27 Physical Exam: Patient has good strength testing if she sits at the bedside.
--- NOTE | 2018-05-19 10:34 | Hospitalist Progress Note ---
Date of Service May 19, 2018 Assessment & Plan (1) Neurogenic claudication due to lumbar spinal stenosis: POD #2 S/P Lumbar Decompression/Fusion L3-L5 by Dr. Kumar -Tolerated procedure well -Per ortho for pain control, wound care, anticoagulation and activities -Hgb stable at 10.1 today (10.9 yesterday). Continue to monitor -Continue incentive spirometry, continue PT/OT -Primary service planning for discharge home tomorrow (2) Hypertension: Normotensive (3) Hyperlipidemia: Continue atorvastatin (4) Asthma: No acute exacerbation -PRN Ventolin (5) Depression: Mood stable, Zyprexa HS (6) Obesity: Encourage lifestyle modifications -BMI 39 (7) Acid reflux: Continue PPI (8) DVT prophylaxis: SCDS, per primary Disposition: per primary Follow up: PCP Laura Castillo upon discharg. Primary service planning for discharge home tomorrow. Patient was seen and examined in collaboration with Dr. Agosto, please see addendum Supervising Physician Co-Signing Physician Notes Attending addendum; The patient was seen and examined the medical unit She denies any complaints today Has been getting physical therapy following lumbar surgery Labs stable and hemodynamically stable Agree with assessment and plan as outlined above by Sunshine Agosto Subjective Patient seen and examined. Feeling well this morning. Some back pain with ambulation. No numbness or paresthesias in lower extremities. No chest pain, SOB, nausea, vomiting or abdominal pain. Hong catheter removed and patient urinating without problem. + flatus but no BM yet. Physical Exam Vital Signs (Past 24 Hours): Last Vital Signs Temp 36.6 C 05/19/18 06:27 Pulse 60 05/19/18 06:27 Resp 16 05/19/18 06:27 BP 125/78 05/19/18 06:27 Pulse Ox 99 05/19/18 06:27 Physical Exam: General Appearance: WD/WN, no apparent distress, ambulating in room with walker Head: normocephalic, atraumatic Eyes: normal inspection, PERRL, EOMI ENT: hearing grossly normal, pharynx normal (moist mucous membranes) Neck: supple, no JVD, no adenopathy Respiratory/Chest: lungs clear to auscultation. No wheezes, rales or rhonci. No respiratory distress or accessory muscle use Cardiovascular: regular rate, rhythm, no murmur, normal peripheral pulses Abdomen/GI: normal bowel sounds, soft, non-tender to palpation Extremities/Musculoskelatal: Lumbosacral dressing clean, dry, intact. MADELYN drain visualized. Normal capillary refill, no pedal edema Neurologic/Psych: alert, normal mood/affect, oriented x 3 Skin: normal color, warm/dry Results & Data Laboratory Results Short CBC 05/19/18 Range/Units 05:47 WBC 9.91 (4.8-10.8) K/uL Hgb 10.1 L (12.0-16.0) g/dL Hct 32.2 L (37-47) % Plt Count 131 (130-400) K/uL BMP 05/19/18 05:47 Sodium 144 Potassium 4.7 Chloride 108 H Carbon Dioxide 34 H BUN 18 Creatinine 0.85 Glucose 95 Calcium 8.4 L (1) Depression Active/Remission status: remission status unspecified Depression Type: major depressive disorder Major depression recurrence: unspecified whether recurrent Qualified Code(s): F32.9 - Major depressive disorder, single episode, unspecified (2) Hyperlipidemia Hyperlipidemia type: unspecified Qualified Code(s): E78.5 - Hyperlipidemia, unspecified (3) Acid reflux Esophagitis presence: esophagitis presence not specified Qualified Code(s): K21.9 - Gastro-esophageal reflux disease without esophagitis (4) Hypertension Hypertension type: essential hypertension Qualified Code(s): I10 - Essential (primary) hypertension (5) Obesity Body mass index: BMI 39.0-39.9 Obesity classification: adult class 2 (BMI 35 - 39.9) Obesity type: due to excess calories Serious obesity comorbidity presence: without serious comorbidity Qualified Code(s): E66.09 - Other obesity due to excess calories; Z68.39 - Body mass index (BMI) 39.0-39.9, adult (6) Asthma Asthma complication type: uncomplicated Asthma persistence: intermittent Asthma severity: mild Qualified Code(s): J45.20 - Mild intermittent asthma, uncomplicated
[2018-05-19] MEDS: MONTELUKAST SODIUM 10 MG TABLET PO SCH (20:53)
[2018-05-19] MEDS: ATORVASTATIN 20 MG TAB PO SCH (20:53)
[2018-05-19] MEDS: OLANZapine 5 MG TABLET PO SCH (20:53)
[2018-05-19] MEDS: DOCUSATE SODIUM/SENNA 50/8.6MG TAB PO SCH (20:53)
[2018-05-20] MEDS: POLYETHYLENE (MIRALAX) 17 GM PACK PO SCH ×2 (00:47→06:06)
[2018-05-20] MEDS: LEVOTHYROXINE SODIUM 75 MCG TABLET PO SCH (06:02)
[2018-05-20 06:41] LABS: Hematocrit (blood only) 36.3 % (37-47); Hemoglobin 11.3 g/dL (12.0-16.0); Mean Corpuscular Hgb Conc 31.1 g/dL (32-36); Mean Corpuscular Volume 89.9 fL (80-100); Mean Platelet Volume 12.3 fL (7.4-10.4); Platelet Count 145 K/uL (130-400); RDW Coefficient of Variation 14.4 % (11.5-14.5); RDW Standard Deviation 47.4 fL (36.4-46.3); Red Blood Count 4.04 M/uL (4.2-5.4); White Blood Count 9.08 K/uL (4.8-10.8)
[2018-05-20 07:10] LABS: Calcium 8.8 mg/dl (8.5-10.1); Creatinine Clr Calc Pharmacy 77.9 ml/min; Est GFR (African American) 81.6; Est GFR (Non-African American) 70.4; Potassium 4.5 mmol/L (3.5-5.1)
[2018-05-20] MEDS: SERTRALINE HCL 100 MG TABLET PO SCH (08:09)
[2018-05-20] MEDS: PANTOprazole 40 MG TAB PO SCH (08:09)
[2018-05-20] MEDS: dilTIAZem HCL 240 MG CAPCR PO SCH (08:09)
[2018-05-20] MEDS: OXYCODONE HCL IR 5 MG TAB (IMMEDIATE RELEASE) PO PRN (08:16)
[2018-05-20] MEDS: TRAMADOL HCL 50 MG TABLET PO PRN (11:01)
--- NOTE | 2018-05-20 13:31 | Discharge Summary ---
Date of Service May 20, 2018 Admission HPI Per Admitting Provider This is a 67-year-old female that presents with chronic persistent back pain. She after failing extensive course of nonoperative care she is here for surgical intervention. Principal Diagnosis Lumbar spinal stenosis with neurogenic claudication Discharge Data Allergies Allergy/AdvReac Type Severity Reaction Status Date / Time codeine Allergy Unknown CHEST Verified 05/17/18 10:13 PAIN/VOMITING morphine Allergy Unknown CHEST Verified 05/17/18 10:13 PAIN/VOMITING Consultations 05/17/18 15:40 Consult Case Management - Discharge Planning Routine Consult Hospitalist Routine Procedures Performed Operation Date: 05/17/18 11:25 Actual Procedures p L3-L5 Decompression and Fusion - Kendell Kumar DO Ordered Studies 05/17/18 11:25 FL fluoroscopy <1hr Routine FL lumbar spine 2-3V Routine Hospital Course (1) Neurogenic claudication due to lumbar spinal stenosis: Patient underwent lumbar decompression fusion tolerated this well was taken to the orthopedic floor postoperative. Postop day 1 she was up and ambulating nicely. Progressive postop day #2. MADELYN drain decreased probably. Subsequently discharged home. Discharge orders and instructions found in the chart for further review. Total Time Total Time Spent Total Time Spent (In Minutes): Not applicable Discharge Plan Discharge Items Patient Disposition: Home - Self-Care Reason For Visit: Radiculopathy, Lumbar Region Discharge Diagnosis: lumbar stenosis Discharge Goals: Improve function Activity: Per 'Additional Instructions' section Non-emergency contact: Primary Care Provider Call non-emergency contact if: you have any medication questions Follow-up/Referrals: Laura Castillo PA-C [Primary Care Provider] - Diet: Regular Addtl Provider Instructions: ACTIVITY RECOMMENDATIONS: SELF CARE INSTRUCTIONS AFTER THORACIC/LUMBAR FUSIONS 1. You may walk to your tolerance. It is good exercise for your legs and back. Expect some back and intermittent leg aches and pains. 2. You may perform "counter-top" level activities (make a sandwich, crow with a project, etc.). 3. No bending or lifting of more than 10 pounds or back twisting of any nature (roll like a log when turning in bed). 4. You may ride in a car for 20-30 minutes at a time. No driving until after your first visit with your doctor. 5. Frequent changes of position and restricting sitting to 30 minutes at a time will help limit the amount of back spasms and stiffness you may experience. 6. You may discontinue the use of ambulatory aids (cane, crutches, etc.) once your strength and confidence allow. 7. You may die engraving supervisor the shower and let water strike your incision when you arrive home at least once daily. Do not take a tub bath, sit in a hot tub or go into a swimming pool until after your first recheck in the office. SPECIAL CARE INSTRUCTIONS: VERY IMPORTANT TO READ AND REVIEW A. Your surgical incision has been closed with a cosmetic suture under the skin that will dissolve in about 6 weeks. In 14 days, you can use a pair of clean scissors and cut the suture that is left outside of the skin at the ends of your incision. 1. The small skin tapes can be removed 7 days after surgery if they have not fallen off by that point. 2. You may keep the wound open to air as much as possible to promote healing after post-op day number 5 unless told otherwise by your doctor. 3. If you think the wound looks like it is becoming infected (redness or worsening drainage) and/or you are experiencing fever, chill or worsening back pain and muscle spasms, contact the office so that we may evaluate you as soon as possible. B. Complications are uncommon, but please contact us if you have any signs or symptoms of: 1. wound infection (fever higher than 102.5 degrees F, redness, separation of wound, drainage, or increasing pain from the incision) 2. blood clots in legs (pain, swelling, redness and warmth in legs) 3. urinary tract infection (fever higher than 102.5 degrees F, burning upon urination or increased frequency of urination) 4. nerve problems (inability to walk on your toes or heels, numbness, loss of bowel or bladder control) 5. any other symptoms that concern you C. Please call the office at if you have any concerns or questions about your operation or recovery. D. No smoking! Smoking drastically decreases the chance of a solid fusion. E. Do not take any anti-inflammatory medications (Indocin, Advil, Motrin, Aspirin, Naprosyn, etc.) as these may inhibit the chance of a solid fusion. Tylenol is okay to take for pain. MANAGING PAIN AFTER SPINAL SURGERY 1. Narcotic medication is intended for short-term use and will be provided for surgical pain. Surgical pain usually lasts for a period of 4-6 weeks. Narcotic medication includes Percocet, Vicodin, Darvocet, Tylenol #3 or Lortab. 2. Longer-term pain is more appropriately treated with non-narcotic medication such as Tylenol ES. 3. Muscle spasm is not appropriately treated with narcotics. Muscle relaxers such as Soma, Flexeril or Skelaxin can be used along with Tylenol ES. 4. Remember that we all live with some "aches and pains". This is not unusual or uncommon after an injury or as we get older. a. Back pain is expected and may include muscle spasms for 4 to 6 weeks after surgery. The pain should gradually improve. If the pain worsens for no apparent reason, please contact the office. b. Intermittent leg pain may also be experienced and should not be concerned about unless it worsens for no apparent reason. If so, please contact the office. 5. We will provide appropriate medication within the normal guidelines of their prescribed use. We will also be very cautious and aware of potential abuse and extended duration of patients' medication needs. a. Pain medications are for your comfort and to assist with sleep and rest so that the tissue can heal. They are not provided in order to return to normal activity and should not be used through the day. To do so or worsening pain at night can result from ongoing tissue damage and development of tolerance to the prescribed medicine. 6. Please allow 2-3 days to process refills. Prescriptions will not be mailed but must be picked up at the office. FOLLOW UP VISIT: Keep your scheduled follow-up appointment. Any questions, please call the office at . Prescriptions: New tramadol 50 mg Tablet 50 mg PO Q4H PRN (Reason: Pain, Moderate) Qty: 30 RF: 0 oxycodone 5 mg Tablet 5 mg PO Q4H PRN (Reason: Pain, Severe) Qty: 30 RF: 0 Continued atorvastatin 20 mg Tablet 20 mg PO PM RF: 0 diltiazem HCl [Cartia XT] 240 mg Capsule,Extended Release 24hr 240 mg PO QAM RF: 0 sertraline 100 mg Tablet 100 mg PO BID RF: 0 olanzapine 10 mg Tablet 5 mg PO PM RF: 0 pantoprazole 40 mg Tablet,Delayed Release (Dr/Ec) 40 mg PO QAM RF: 0 montelukast 10 mg Tablet 10 mg PO PM RF: 0 levothyroxine 75 mcg Capsule 75 mcg PO QAM RF: 0 amoxicillin 500 mg tablet 2 g PO UD RF: 0 albuterol sulfate [Ventolin HFA] 90 mcg/actuation HFA aerosol inhaler 2 puff Inhalation Q4H PRN (Reason: SOB) RF: 0 Stand-Alone Forms: [email or web address], [facility] [employer]/Other Patient Handouts: Surgery Prevent DVT After Discharge Orders: Discharge Order (Routine); Ordered 05/20/18 Ordered By: Kendell Kumar Admission Data Admit Date/Time: 05/17/18 14:07 Attending Provider: Kendell Kumar Admit Provider: Kendell Kumar Primary Care Provider: Laura Castillo. Other Providers: Anant Heredia Manabendra Service: Surgical Services Other Interventions: Discharge Summary Assessment (RN) Last Done: 05/20/18 11:04 DC Date/Time DO NOT enter until pt leaves facility: 05/20/18 12:37
== END 2018-05-20 12:37 | disposition home or self-care (01) | DRG 455 ==
LOC: ASU 09:53 → 3E 14:07